=== PATIENT | male | born 1980 | race Caucasian/White ===

== ENCOUNTER 2018-07-21 11:07 | Emergency (ER) | payer BC, OTHER, SELFPAY ==
[2018-07-21 12:21] LABS: Absolute Lymphocytes (CBC) 3.6 K/uL (0.7-4.9); Absolute Monocytes 0.8 K/uL (0.1-1.3); Absolute Neutrophil 5.4 K/uL (1.8-8.0); Basophils % 0.6 % (0-1.3); Eosinophils % 3.3 % (0-4.4); Hematocrit 45.7 % (39.6-49.0); MPV 9.3 fL (7.6-11.3); RBC Red Blood Cell Count 5.22 M/uL (4.33-5.43)
--- NOTE | 2018-07-21 12:28 | RAD REPORT ---
EXAM DESCRIPTION: CT - Head Brain Wo Cont - 07/21/2018 12:21 pm CLINICAL HISTORY: DIZZINESS Headache, drowsiness COMPARISON: No comparisons TECHNIQUE: All CT scans are performed using dose optimization technique as appropriate and may inclu de automated exposure control or mA/KV adjustment according to patient size. FINDINGS: No intracranial hemorrhage, hydrocephalus or extra-axial fluid collection.No areas of brai n edema or evidence of midline shift. The paranasal sinuses and mastoids are clear. The calvarium is intact. IMPRESSION: No acute intracranial abnormality.
[2018-07-21 12:32] LABS: Protime INR 1.04
[2018-07-21 12:44] LABS: ALT/SGPT 39 U/L (12-78); AST/SGOT 20 U/L (15-37); Albumin 3.7 g/dL (3.4-5.0); Alkaline Phosphatase 93 U/L (45-117); BUN Blood Urea Nitrogen 14 mg/dL (7-18); Bicarbonate 27 mmol/L (21-32); Bilirubin Direct 0.1 mg/dL (0-0.2); Bilirubin Total 0.4 mg/dL (0.2-1.0); Glucose Level 94 mg/dL (74-106); Magnesium 2.1 mg/dL (1.8-2.4); NT PRO-BNP 205 pg/mL (<125); Potassium 3.7 mmol/L (3.5-5.1); Protein, Total 7.4 g/dL (6.4-8.2); Sodium Level 140 mmol/L (136-145); Troponin (Emerg Dept Use Only) < 0.02 ng/mL (0.0-0.045)
--- NOTE | 2018-07-21 12:57 | RAD REPORT ---
EXAM DESCRIPTION: RAD - Chest Single View - 07/21/2018 12:51 pm CLINICAL HISTORY: Hypertension, dizziness, shortness of breath COMPARISON: None. TECHNIQUE: AP portable chest image was obtained 1238 hours . FINDINGS: Lungs are clear. Heart size is upper normal to slightly enlarged. No vascular engorgement. No measurable pleural effusion and no pneumothorax. No acute bony abnormality seen. No acute aortic findings suspected. IMPRESSION: No acute cardiopulmonary process. Heart size is upper normal to slightly enlarged. No failure finding.
--- NOTE | 2018-07-21 14:55 | EDPHYS ---
Physician Documentation [facility] Name: Mumtaz Jean Baptiste Age: 38 yrs Sex: Male : 1980 Arrival Date: 07/21/2018 Time: 11:11 Bed 24 Private MD: ED Physician Niko Pratt HPI: 07/21 12:00 This 38 yrs old Male presents to ER via Ambulatory with complaints of High pm1 Blood Pressure. 12:00 The patient has elevated blood pressure and discovered this At work. Onset: The pm1 symptoms/episode began/occurred this morning. Modifying factors: The symptoms are aggravated by nothing. Associated signs and symptoms: Pertinent positives: dizziness, Pertinent negatives: chest pain, dyspnea, headache, nausea, vomiting, weakness. Severity of symptoms: in the emergency department the blood pressure is improved. The patient has not experienced similar symptoms in the past. The patient has not recently seen a physician. Patient was at work and felt dizziness and bilateral blurry vision. He went to his work's nursing office and they checked his pressure and told him that his pressure was elevated, between 180 to 200 systolic. Referred to ER. Historical: - Allergies: 11:25 No Known Allergies; aa5 - PMHx: 11:25 None; aa5 - PSHx: 11:25 None; aa5 - Immunization history:: Flu vaccine is not up to date. - Social history:: Smoking status: Patient/guardian denies using tobacco. - Ebola Screening: : No symptoms or risks identified at this time. ROS: 12:00 Constitutional: Negative for fever, chills, and weight loss, Eyes: Negative for injury, pm1 pain, redness, and discharge, ENT: Negative for injury, pain, and discharge, Neck: Negative for injury, pain, and swelling, Cardiovascular: Negative for chest pain, palpitations, and edema, Respiratory: Negative for shortness of breath, cough, wheezing, and pleuritic chest pain, Abdomen/GI: Negative for abdominal pain, nausea, vomiting, diarrhea, and constipation, Back: Negative for injury and pain, : Negative for injury, bleeding, discharge, and swelling, MS/Extremity: Negative for injury and deformity, Skin: Negative for injury, rash, and discoloration. 12:00 Neuro: Positive for dizziness, Negative for altered mental status, gait disturbance, headache, numbness, tingling, weakness. Exam: 12:00 Constitutional: This is a well developed, well nourished patient who is awake, alert, pm1 and in no acute distress. Head/Face: Normocephalic, atraumatic. Eyes: Pupils equal round and reactive to light, extra-ocular motions intact. Lids and lashes normal. Conjunctiva and sclera are non-icteric and not injected. Cornea within normal limits. Periorbital areas with no swelling, redness, or edema. ENT: Nares patent. No nasal discharge, no septal abnormalities noted. Tympanic membranes are normal and external auditory canals are clear. Oropharynx with no redness, swelling, or masses, exudates, or evidence of obstruction, uvula midline. Mucous membranes moist. Neck: Trachea midline, no thyromegaly or masses palpated, and no cervical lymphadenopathy. Supple, full range of motion without nuchal rigidity, or vertebral point tenderness. No Meningismus. Chest/axilla: Normal chest wall appearance and motion. Nontender with no deformity. No lesions are appreciated. Cardiovascular: Regular rate and rhythm with a normal S1 and S2. No gallops, murmurs, or rubs. Normal PMI, no JVD. No pulse deficits. Respiratory: Lungs have equal breath sounds bilaterally, clear to auscultation and percussion. No rales, rhonchi or wheezes noted. No increased work of breathing, no retractions or nasal flaring. Abdomen/GI: Soft, non-tender, with normal bowel sounds. No distension or tympany. No guarding or rebound. No evidence of tenderness throughout. Back: No spinal tenderness. No costovertebral tenderness. Full range of motion. Skin: Warm, dry with normal turgor. Normal color with no rashes, no lesions, and no evidence of cellulitis. MS/ Extremity: Pulses equal, no cyanosis. Neurovascular intact. Full, normal range of motion. 12:00 Neuro: Orientation: is normal, Mentation: is normal, Cranial nerves: CN II- XII are normal as tested, Cerebellar function: normal finger to nose testing, heel to landry testing is normal, Motor: moves all fours, strength is normal, strength is 5/5 in all extremities, Sensation: is normal, no obvious gross deficits, Gait: is steady, at a normal pace, without difficulty, Abnormal movements: there are no abnormal movements. 12:00 Psych: Behavior/mood is cooperative, anxious, Oriented to person, place, time. Vital Signs: 11:25 BP 134 / 88; Pulse 88; Resp 18 S; Temp 97.6(TE); Pulse Ox 97% on R/A; Weight 163.29 kg aa5 (R); Height 6 ft. 2 in. (187.96 cm) (R); Pain 0/10; 14:32 BP 162 / 97; Pulse 82; Resp 18; Temp 98.4(O); Pulse Ox 99% on R/A; Pain 0/10; ls4 11:25 Body Mass Index 46.22 (163.29 kg, 187.96 cm) aa5 MDM: 11:29 Patient medically screened. pm1 14:54 Data reviewed: vital signs. Data interpreted: Pulse oximetry: on room air is 99 %. pm1 Interpretation: normal. Counseling: I had a detailed discussion with the patient and/or guardian regarding: the historical points, exam findings, and any diagnostic results supporting the discharge/admit diagnosis, lab results, radiology results, the need for outpatient follow up, to return to the emergency department if symptoms worsen or persist or if there are any questions or concerns that arise at home. 07/21 11:54 Order name: Basic Metabolic Panel; Complete Time: 12:56 pm07/21 11:54 Order name: CBC with Diff; Complete Time: 12:56 pm07/21 11:54 Order name: LFT's; Complete Time: 12:56 pm07/21 11:54 Order name: Magnesium; Complete Time: 12:56 pm07/21 11:54 Order name: NT PRO-BNP; Complete Time: 12:56 pm07/21 11:54 Order name: PT-INR; Complete Time: 12:56 pm07/21 11:54 Order name: Troponin (emerg Dept Use Only); Complete Time: 12:56 pm07/21 11:54 Order name: XRAY Chest (1 view); Complete Time: 13:07 pm07/21 11:54 Order name: EKG; Complete Time: 11:55 pm07/21 11:54 Order name: Cardiac monitoring; Complete Time: 12:20 pm07/21 11:54 Order name: EKG - Nurse/Tech; Complete Time: 12:20 pm1 07/21 11:54 Order name: IV Saline Lock; Complete Time: 12:20 pm1 07/21 11:54 Order name: Labs collected and sent; Complete Time: 12:20 pm1 07/21 11:54 Order name: CT Head Brain wo Cont; Complete Time: 12:56 pm1 07/21 11:54 Order name: O2 Per Protocol; Complete Time: 12:20 pm1 07/21 11:54 Order name: O2 Sat Monitoring; Complete Time: 12:20 pm1 Administered Medications: No medications were administered Disposition: 07/21/18 14:54 Discharged to Home. Impression: Essential (primary) hypertension. - Condition is Stable. - Discharge Instructions: Hypertension, How to Take Your Blood Pressure, [id number], Exercising to Lose Weight, DASH Eating Plan, Managing Your Hypertension. - Medication Reconciliation Form, Thank You Letter form. - Follow up: Emergency Department; When: As needed; Reason: Worsening of condition. Follow up: Private Physician; When: 2 - 3 days; Reason: Recheck today's complaints, Continuance of care, Re-evaluation by your physician. - Problem is new. - Symptoms have improved. Signatures: Dispatcher [employer] EDMS Bertha Rod RN RN aa5 Iam Marin NP MANAGER PERIOPERATIVE pm1 Wendy Begum RN RN ls4 Corrections: (The following items were deleted from the chart) 15:03 14:54 07/21/2018 14:54 Discharged to Home. Impression: Essential (primary) ls4 hypertension. Condition is Stable. Forms are Medication Reconciliation Form, Thank You Letter, Antibiotic Education, Prescription Opioid Use. Follow up: Emergency Department; When: As needed; Reason: Worsening of condition. Follow up: Private Physician; When: 2 - 3 days; Reason: Recheck today's complaints, Continuance of care, Re-evaluation by your physician. Problem is new. Symptoms have improved. pm1
--- NOTE | 2018-07-21 14:55 | ER ---
Nurse's Notes [facility] Name: Mumtaz Jean Baptiste Age: 38 yrs Sex: Male : 1980 Arrival Date: 07/21/2018 Time: 11:11 Bed 24 Private MD: Diagnosis: Essential (primary) hypertension Presentation: 07/21 11:23 Presenting complaint: Patient states: "I was just sitting at my desk at work and I aa5 started feeling lightheaded and my vision was blurry and I went to the nurse's office and they said my blood pressure was about 220 (systolic)". Transition of care: patient was not received from another setting of care. Onset of symptoms was June 2018. Risk Assessment: Do you want to hurt yourself or someone else? Patient reports no desire to harm self or others. Initial Sepsis Screen: Does the patient meet any 2 criteria? No. Patient's initial sepsis screen is negative. Does the patient have a suspected source of infection? No. Patient's initial sepsis screen is negative. Care prior to arrival: None. 11:23 Method Of Arrival: Ambulatory aa5 11:23 Acuity: MARILUZ 3 aa5 Triage Assessment: 12:20 General: Appears in no apparent distress. Behavior is calm, cooperative. Pain: Denies ls4 pain. Neuro: No deficits noted. Cardiovascular: Denies chest pain, diaphoresis, fatigue, lightheadedness, nausea, palpitations, shortness of breath, syncope, vomiting, Capillary refill < 3 seconds Patient's skin is warm and dry. Respiratory: Airway is patent Respiratory effort is even, unlabored, Respiratory pattern is regular. GI: No deficits noted. : No deficits noted. Derm: Skin is pink, warm \\T\\ dry. Musculoskeletal: No deficits noted. Historical: - Allergies: 11:25 No Known Allergies; aa5 - PMHx: 11:25 None; aa5 - PSHx: 11:25 None; aa5 - Immunization history:: Flu vaccine is not up to date. - Social history:: Smoking status: Patient/guardian denies using tobacco. - Ebola Screening: : No symptoms or risks identified at this time. Screenin:29 Abuse screen: Denies threats or abuse. Denies injuries from another. Nutritional ls4 screening: No deficits noted. Tuberculosis screening: No symptoms or risk factors identified. Fall Risk None identified. Assessment: 12:29 General: SEE TRIAGE. ls4 12:51 Reassessment: Patient appears in no apparent distress at this time. Patient and/or ls4 family updated on plan of care and expected duration. Pain level reassessed. Patient is alert, oriented x 3, equal unlabored respirations, skin warm/dry/pink. Vital Signs: 11:25 BP 134 / 88; Pulse 88; Resp 18 S; Temp 97.6(TE); Pulse Ox 97% on R/A; Weight 163.29 kg aa5 (R); Height 6 ft. 2 in. (187.96 cm) (R); Pain 0/10; 14:32 BP 162 / 97; Pulse 82; Resp 18; Temp 98.4(O); Pulse Ox 99% on R/A; Pain 0/10; ls4 11:25 Body Mass Index 46.22 (163.29 kg, 187.96 cm) aa5 ED Course: 11:11 Patient arrived in ED. mr 11:23 Arm band placed on. aa5 11:25 Triage completed. aa5 11:29 Iam Marin, RN PERINATAL is PHCP. pm1 11:29 Niko Pratt MD is Attending Physician. pm1 12:02 Wendy Begum RN is Primary Nurse. ls4 12:10 Patient has correct armband on for positive identification. Fall risk band placed. Bed ls4 in low position. Side rails up X 1. surveillance monitor on. Pulse ox on. NIBP on. 12:10 No provider procedures requiring assistance completed. Initial lab(s) drawn, by nh, ls4 sent to lab. EKG done, by electrical engineering technologist. Inserted saline lock: 20 gauge in right antecubital area, using aseptic technique. Blood collected. 12:10 Patient maintains SpO2 saturation greater than 95% on room air. ls4 12:21 CT Head Brain wo Cont In Process Unspecified. EDMS 12:31 EKG done, by electrical engineering technologist. reviewed by Iam Marin NP. dt2 12:50 X-ray completed. Portable x-ray completed in exam room. Patient tolerated procedure sw well. 12:51 XRAY Chest (1 view) In Process Unspecified. EDMS 14:44 IV discontinued, intact, bleeding controlled, No redness/swelling at site. Pressure ls4 dressing applied. Administered Medications: No medications were administered Outcome: 14:54 Discharge ordered by MD. pm1 15:02 Discharged to home ambulatory, with family. ls4 15:02 Condition: good 15:02 Discharge instructions given to patient, family, Instructed on discharge instructions, follow up and referral plans. medication usage, Demonstrated understanding of instructions, follow-up care, medications, Prescriptions given X 15:03 Patient left the ED. ls4 Signatures: Dispatcher [employer] EDMS Syeda Cameron Audri, RN RN aa5 Hilaria Goldman Patrick, CLARITA RN PERINATAL pm1 Amada Soares dt2 Wendy Begum, RN RN ls4
--- NOTE | 2018-07-21 18:38 | EKG ---
Test Date: 2018-07-21 Test Time: 12:20:27 Show Host Or Hostess: VLADISLAV MEASUREMENT RESULTS: Intervals: Rate: 84 WV: 168 QRSD: 132 QT: 372 QTc: 439 Snover: P: 36 WV: 168 QRS: 119 T: 30 INTERPRETIVE STATEMENTS: Normal sinus rhythm Right axis deviation Incomplete right bundle branch block Abnormal ECG No previous ECG available for comparison Electronically Signed On 07-21-18 18:37:22 COMMAND CENTER ANALYST by Lionel Manuel
== END 2018-07-21 15:03 | disposition home or self-care (01) ==
LOC: ER 11:07
DX: I10 Essential (primary) hypertension (principal)
CPT/HCPCS: 36415; 70450; 71045; 80048; 80076; 83735; 83880; 84484; 85025; 85610; 93005; 99285

== ENCOUNTER 2019-03-30 11:06 | Observation (INO) | payer BC ==
[2019-03-30] MEDS ORDERED: NA CHLORIDE 0.9% 1,000 ML ONE (12:01)
--- NOTE | 2019-03-30 12:20 | RAD REPORT ---
EXAM DESCRIPTION: RAD - Chest Single View - 03/30/2019 12:12 pm CLINICAL HISTORY: COUGH Chest pain. COMPARISON: Chest Single View dated 07/21/2018 FINDINGS: Portable technique limits examination quality. The lungs are grossly clear. The heart is mildly enlarged in size. No displaced fractures.Cervical torres rdware plate.
[2019-03-30 12:21] LABS: Absolute Lymphocytes (CBC) 3.3 K/uL (0.7-4.9); Basophils % 0.6 % (0-1.3); Hematocrit 43.7 % (39.6-49.0); Lymphocytes % 35.6 % (15.3-44.8); MPV 10.2 fL (7.6-11.3); RBC Red Blood Cell Count 5.09 M/uL (4.33-5.43)
[2019-03-30 12:25] LABS: Protime INR 1.13
[2019-03-30 12:43] LABS: ALT/SGPT 44 U/L (12-78); AST/SGOT 22 U/L (15-37); Alkaline Phosphatase 82 U/L (45-117); BUN Blood Urea Nitrogen 33 mg/dL (7-18); Bicarbonate 23 mmol/L (21-32); Bilirubin Direct 0.2 mg/dL (0-0.2); Bilirubin Total 0.8 mg/dL (0.2-1.0); Glucose Level 83 mg/dL (74-106); Lipase 141 U/L (73-393); Magnesium 2.2 mg/dL (1.8-2.4); NT PRO-BNP 241 pg/mL (<125); Potassium 4.3 mmol/L (3.5-5.1); Protein, Total 7.5 g/dL (6.4-8.2); Sodium Level 138 mmol/L (136-145); Troponin (Emerg Dept Use Only) < 0.02 ng/mL (0.0-0.045)
--- NOTE | 2019-03-30 13:24 | ER ---
Nurse's Notes [facility] Name: Mumtaz Jean Baptiste Age: 38 yrs Sex: Male : 1980 Arrival Date: 03/30/2019 Time: 11:11 Bed 8 Private MD: Bossman Ayon Diagnosis: Dyspnea;Unspecified combined systolic (congestive) and diastolic (congestive) heart failure;Unspecified kidney failure;Obesity, unspecified Presentation: 03/30 11:35 Presenting complaint: Patient states: Pt reports he was seen at [facility] and ss transferred to [facility] a week ago and told that he had fluid on his lungs. Patient states that he has not been feeling well over the weekend, but thought his body was just adjusting to his new medications. Patient was seen by his PCP this morning who told him to come to the ER because perhaps the pharmacy has given him too much medication. Transition of care: patient was not received from another setting of care. Onset of symptoms was March 30, 2019. Risk Assessment: Do you want to hurt yourself or someone else? Patient reports no desire to harm self or others. Initial Sepsis Screen: Does the patient meet any 2 criteria? No. Patient's initial sepsis screen is negative. Does the patient have a suspected source of infection? No. Patient's initial sepsis screen is negative. Care prior to arrival: None. 11:35 Acuity: MARILUZ 3 ss 11:35 Method Of Arrival: Ambulatory ss Historical: - Allergies: 11:40 No Known Allergies; ss - Home Meds: 11:40 aspirin 81 mg Oral TbEC 1 tab once daily [Active]; carvedilol 6.25 mg oral tab 1 tab ss every 12 hours [Active]; furosemide 80 mg Oral tab 1 tab once daily [Active]; losartan 100 mg oral tab 1 tab once daily [Active]; spironolactone 25 mg Oral tab 1 tab once daily [Active]; atorvastatin 20 mg oral tab 1 tab once daily [Active]; - PMHx: 11:40 CHF; ss - PSHx: 11:40 None; ss - Immunization history:: Adult Immunizations up to date. - Social history:: Smoking status: Patient/guardian denies using tobacco. - Ebola Screening: : Patient denies exposure to infectious person Patient denies travel to an Ebola-affected area in the 21 days before illness onset. - Family history:: not pertinent. Screenin:30 Abuse screen: Denies threats or abuse. Denies injuries from another. Nutritional hb screening: No deficits noted. Tuberculosis screening: No symptoms or risk factors identified. Fall Risk None identified. Assessment: 11:59 Reassessment: pt request to remain standing due to nausea when sitting down and sg worsening symptoms when lying in bed, pt IV completed and remains on monitors while standing at this time. 12:45 Reassessment: Patient appears in no apparent distress at this time. Patient and/or hb family updated on plan of care and expected duration. Pain level reassessed. Patient is alert, oriented x 3, equal unlabored respirations, skin warm/dry/pink. 13:41 Reassessment: Patient appears in no apparent distress at this time. No changes from hb previously documented assessment. Patient and/or family updated on plan of care and expected duration. Pain level reassessed. Patient is alert, oriented x 3, equal unlabored respirations, skin warm/dry/pink. Vital Signs: 11:40 BP 108 / 71; Pulse 75; Resp 17; Temp 98.2(O); Pulse Ox 99% on R/A; Weight 167.83 kg; ss Height 6 ft. 2 in. (187.96 cm); Pain 8/10; 13:30 BP 110 / 77; Pulse 72; Resp 17; Temp 98.2; Pulse Ox 100% on R/A; sg 14:35 BP 115 / 72; Pulse 60 MON; Resp 17; Pulse Ox 96% on R/A; Pain 2/10; sg 11:40 Body Mass Index 47.50 (167.83 kg, 187.96 cm) ED Course: 11:11 Patient arrived in ED. mr 11:11 Bossman Ayon MD is Private Physician. mr 11:38 Triage completed. ss 11:40 Arm band placed on left wrist. 11:44 Niko Pratt MD is Attending Physician. [facility] 11:48 Quoc Waller, CHASTITY is Primary Nurse. sg 11:59 Initial lab(s) drawn, by sd, sent to lab. Inserted saline lock: 20 gauge in left hand, sg using aseptic technique. Blood collected. 12:13 XRAY Chest (1 view) In Process Unspecified. EDMS 12:22 EKG done, by collection systems technician. reviewed by Niko Pratt MD. at1 12:30 Patient has correct armband on for positive identification. Bed in low position. Call hb light in reach. Side rails up X 1. 13:22 Christy Whitehead MD is Hospitalizing Provider. sadi Administered Medications: 13:08 Not Given (Duplicate Order): NS 0.9% 1000 ml IV at 1 bolus Per protocol; 1000 mL bolus asdi Outcome: 13:23 Decision to Hospitalize by Provider. sadi 15:31 Patient left the ED. sg Signatures: Dispatcher [employer] EDMS Quoc Waller, RN RN sg Niko Pratt MD MD cha Rivera, Mary mr Ivory Lee, RN RN Almaz Mckay, fish net stringer EKG Tat1 Lesly Jones, RN RN hb
--- NOTE | 2019-03-30 13:25 | EDPHYS ---
Physician Documentation [facility] Name: Mumtaz Jean Baptiste Age: 38 yrs Sex: Male : 1980 Arrival Date: 03/30/2019 Time: 11:11 Bed 8 Private MD: Bossman Ayon ED Physician Niko Pratt HPI: 03/30 13:19 This 38 yrs old Male presents to ER via Ambulatory with complaints of Doesn't sadi Feel Right. 13:19 The patient has shortness of breath at rest, with light activity. Onset: The sadi symptoms/episode began/occurred 2 day(s) ago. Duration: The symptoms are continuous, and are steadily getting worse. The patient's shortness of breath has no apparent modifying factors. hx chf. Associated signs and symptoms: The patient has no apparent associated signs or symptoms. Severity of symptoms: At their worst the symptoms were mild moderate in the emergency department the symptoms are unchanged. The patient has experienced similar episodes in the past, several times. Historical: - Allergies: 11:40 No Known Allergies; ss - Home Meds: 11:40 aspirin 81 mg Oral TbEC 1 tab once daily [Active]; carvedilol 6.25 mg oral tab 1 tab ss every 12 hours [Active]; furosemide 80 mg Oral tab 1 tab once daily [Active]; losartan 100 mg oral tab 1 tab once daily [Active]; spironolactone 25 mg Oral tab 1 tab once daily [Active]; atorvastatin 20 mg oral tab 1 tab once daily [Active]; - PMHx: 11:40 CHF; ss - PSHx: 11:40 None; ss - Immunization history:: Adult Immunizations up to date. - Social history:: Smoking status: Patient/guardian denies using tobacco. - Ebola Screening: : Patient denies exposure to infectious person Patient denies travel to an Ebola-affected area in the 21 days before illness onset. - Family history:: not pertinent. ROS: 13:19 Constitutional: Negative for fever, chills, and weight loss, Eyes: Negative for injury, sadi pain, redness, and discharge, ENT: Negative for injury, pain, and discharge, Neck: Negative for injury, pain, and swelling, Cardiovascular: Negative for chest pain, palpitations, and edema, Respiratory: Negative for shortness of breath, cough, wheezing, and pleuritic chest pain, Abdomen/GI: Negative for abdominal pain, nausea, vomiting, diarrhea, and constipation, Back: Negative for injury and pain, : Negative for injury, bleeding, discharge, and swelling, MS/Extremity: Negative for injury and deformity, Skin: Negative for injury, rash, and discoloration, Neuro: Negative for headache, weakness, numbness, tingling, and seizure, Psych: Negative for depression, anxiety, suicide ideation, homicidal ideation, and hallucinations, Allergy/Immunology: Negative for hives, rash, and allergies, Endocrine: Negative for neck swelling, polydipsia, polyuria, polyphagia, and marked weight changes, Hematologic/Lymphatic: Negative for swollen nodes, abnormal bleeding, and unusual bruising. Exam: 13:19 Constitutional: This is a well developed, well nourished patient who is awake, alert, sadi and in no acute distress. Head/Face: Normocephalic, atraumatic. Eyes: Pupils equal round and reactive to light, extra-ocular motions intact. Lids and lashes normal. Conjunctiva and sclera are non-icteric and not injected. Cornea within normal limits. Periorbital areas with no swelling, redness, or edema. ENT: Nares patent. No nasal discharge, no septal abnormalities noted. Tympanic membranes are normal and external auditory canals are clear. Oropharynx with no redness, swelling, or masses, exudates, or evidence of obstruction, uvula midline. Mucous membranes moist. Neck: Trachea midline, no thyromegaly or masses palpated, and no cervical lymphadenopathy. Supple, full range of motion without nuchal rigidity, or vertebral point tenderness. No Meningismus. Chest/axilla: Normal chest wall appearance and motion. Nontender with no deformity. No lesions are appreciated. Cardiovascular: Regular rate and rhythm with a normal S1 and S2. No gallops, murmurs, or rubs. Normal PMI, no JVD. No pulse deficits. Respiratory: Lungs have equal breath sounds bilaterally, clear to auscultation and percussion. No rales, rhonchi or wheezes noted. No increased work of breathing, no retractions or nasal flaring. Abdomen/GI: Soft, non-tender, with normal bowel sounds. No distension or tympany. No guarding or rebound. No evidence of tenderness throughout. Back: No spinal tenderness. No costovertebral tenderness. Full range of motion. Male : Normal genitalia with no discharge or lesions. Skin: Warm, dry with normal turgor. Normal color with no rashes, no lesions, and no evidence of cellulitis. MS/ Extremity: Pulses equal, no cyanosis. Neurovascular intact. Full, normal range of motion. Neuro: Awake and alert, GCS 15, oriented to person, place, time, and situation. Cranial nerves II-XII grossly intact. Motor strength 5/5 in all extremities. Sensory grossly intact. Cerebellar exam normal. Normal gait. Psych: Awake, alert, with orientation to person, place and time. Behavior, mood, and affect are within normal limits. Vital Signs: 11:40 BP 108 / 71; Pulse 75; Resp 17; Temp 98.2(O); Pulse Ox 99% on R/A; Weight 167.83 kg; ss Height 6 ft. 2 in. (187.96 cm); Pain 8/10; 13:30 BP 110 / 77; Pulse 72; Resp 17; Temp 98.2; Pulse Ox 100% on R/A; sg 14:35 BP 115 / 72; Pulse 60 MON; Resp 17; Pulse Ox 96% on R/A; Pain 2/10; sg 11:40 Body Mass Index 47.50 (167.83 kg, 187.96 cm) MDM: 11:44 Patient medically screened. [facility] 13:21 Data reviewed: vital signs, nurses notes, lab test result(s), EKG, radiologic studies, sadi doppler, plain films. 03/30 11:45 Order name: Basic Metabolic Panel; Complete Time: 13: [facility] 03/30 11:45 Order name: CBC with Diff; Complete Time: 13: [facility] 03/30 11:45 Order name: LFT's; Complete Time: 13: [facility] 03/30 11:45 Order name: Magnesium; Complete Time: 13: [facility] 03/30 11:45 Order name: NT PRO-BNP; Complete Time: 13: [facility] 03/30 11:45 Order name: PT-INR; Complete Time: 13: [facility] 03/30 11:45 Order name: Troponin (emerg Dept Use Only); Complete Time: 13: [facility] 03/30 11:45 Order name: XRAY Chest (1 view); Complete Time: 13: [facility] 03/30 11:45 Order name: EKG; Complete Time: 11:47 [facility] 03/30 11:45 Order name: Cardiac monitoring; Complete Time: 12:49 [facility] 03/30 11:45 Order name: Lipase; Complete Time: 13:09 [facility] 03/30 11:45 Order name: Urine Culture [facility] 03/30 12:39 Order name: Echo w/ Doppler [facility] 03/30 11:45 Order name: EKG - Nurse/Tech; Complete Time: 12:49 [facility] 03/30 11:45 Order name: IV Saline Lock; Complete Time: 12:49 [facility] 03/30 11:45 Order name: Labs collected and sent; Complete Time: 12:49 [facility] 03/30 11:45 Order name: O2 Per Protocol; Complete Time: 12:49 [facility] 03/30 11:45 Order name: O2 Sat Monitoring; Complete Time: 12:49 [facility] Administered Medications: 13:08 Not Given (Duplicate Order): NS 0.9% 1000 ml IV at 1 bolus Per protocol; 1000 mL bolus [facility] Disposition: 03/30/19 13:23 Hospitalization ordered by Christy Whitehead for Inpatient Admission. Preliminary diagnosis are Dyspnea, Unspecified combined systolic (congestive) and diastolic (congestive) heart failure, Unspecified kidney failure, Obesity, unspecified. - Bed requested for Telemetry/MedSurg (Inpatient). - Status is Inpatient Admission. sg - Condition is Fair. - Problem is new. - Symptoms have improved. UTI on Admission? No Signatures: Dispatcher [employer] EDMS Reyna Lopes Quoc Asher RN RN sg Anderson, Corey, MD MD cha Smirch, Shelby RN RN ss Corrections: (The following items were deleted from the chart) 14:32 13:23 Hospitalization Ordered by Christy Whitehead MD for Inpatient Admission. Preliminary bd diagnosis is Dyspnea; Unspecified combined systolic (congestive) and diastolic (congestive) heart failure; Unspecified kidney failure; Obesity, unspecified. Bed requested for Telemetry/MedSurg (Inpatient). Status is Inpatient Admission. Condition is Fair. Problem is new. Symptoms have improved. UTI on Admission? No. sadi 15:31 14:32 03/30/2019 13:23 Hospitalization Ordered by Christy Whitehead MD for Inpatient sg Admission. Preliminary diagnosis is Dyspnea; Unspecified combined systolic (congestive) and diastolic (congestive) heart failure; Unspecified kidney failure; Obesity, unspecified. Bed requested for Telemetry/MedSurg (Inpatient). Status is Inpatient Admission. Condition is Fair. Problem is new. Symptoms have improved. UTI on Admission? No. bd
--- NOTE | 2019-03-30 14:01 | ECHO ---
HEIGHT: 6 ft 2 in WEIGHT: 370 lb oz DATE OF STUDY: 03/30/[address]: Niko Pratt MD 2-DIMENSIONAL: YES M.MODE: YES DOPPLER: YES COLOR FLOW: YES TDS: NO PORTABLE: YES DEFINITY: NO BUBBLE STUDY: NO DIAGNOSIS: SHORTNESS OF BREATH CARDIAC HISTORY: CATHERIZATION: NO SURGERY: NO PROSTHETIC VALVE: NO PACEMAKER: NO MEASUREMENTS (cm) DIASTOLIC (NORMALS) SYSTOLIC (NORMALS) IVSd 1.2 (0.6-1.2) LA Diam 4.6 (1.9-4.0) LVEF 22% LVIDd 7.3 (3.5-5.7) LVIDs 6.5 (2.0-3.5) %FS 10% LVPWd 1.2 (0.6-1.2) Ao Diam 3.0 (2.0-3.7) 2 DIMENSIONAL ASSESSMENT: RIGHT ATRIUM: DILATED LEFT ATRIUM: DILATED RIGHT VENTRICLE: DILATED LEFT VENTRICLE: DILATED TRICUSPID VALVE: NORMAL MITRAL VALVE: NORMAL PULMONIC VALVE: NORMAL AORTIC VALVE: NORMAL PERICARDIAL EFFUSION: NONE AORTIC ROOT: NORMAL LEFT VENTRICULAR WALL MOTION: SEVERE GLOBAL HYPOKINESIS. DOPPLER/COLOR FLOW: LOW CARDIAC INDEX. COMMENTS: FOUR CHAMBER DILATATION. BIVENTRICULAR CONGESTIVE HEART FAILURE. LOW CARDIAC INDEX. TECHNOLOGIST: Rowan BOLIVAR
--- NOTE | 2019-03-30 14:32 | EKG ---
Test Date: 2019-03-30 Test Time: 12:24:21 Tile Fitter: ARIS MEASUREMENT RESULTS: Intervals: Rate: 74 WA: 174 QRSD: 116 QT: 400 QTc: 444 [place]: P: 45 WA: 174 QRS: -30 T: 58 INTERPRETIVE STATEMENTS: Normal sinus rhythm Possible Left atrial enlargement Left axis deviation Nonspecific T wave abnormality Abnormal ECG Compared to ECG 07/21/2018 12:20:27 Left-axis deviation now present T-wave abnormality now present Right-axis deviation no longer present Incomplete right bundle-branch block no longer present Electronically Signed On 03-30-19 14:31:27 JOURNEYMAN PAINTER by Lionel Manuel
--- NOTE | 2019-03-30 15:45 | P.HP ---
Certification for Inpatient Patient admitted to: Observation With expected LOS: <2 Midnights Patient will require the following post-hospital care: None Practitioner: I am a practitioner with admitting privileges, knowledge of patient current condition, hospital course, and medical plan of care. Services: Services provided to patient in accordance with Admission requirements found in Title 42 Section 412.3 of the Code of Federal Regulations Patient History Date of Service: 03/30/19 Primary Care Provider: Dr Ayon Reason for admission: Dizziness History of Present Illness: This is a 38-year-old male with significant past medical history of congestive heart failure, obstructive sleep apnea, hyperlipidemia, who presented to the ED complaining of having lightheadedness and dizziness. Patient stated that for about the past couple of days he has been feeling generalized weakness and just not himself and thus he decided to go to his primary care doctor's office today. While at the primary care doctor's office he was evaluated by the PA who told him that he needs to come to the ER to get a further checked out as he might be getting too much of Lasix that might be causing his electrolytes to be abnormal. Patient stated that she he has been having episodes of lightheadedness along with dizziness for the past couple of days. He has also been having generalized weakness along with muscle spasms. Patient stated that 2 weeks ago he was seen at [facility] for shortness of breath and dyspnea was diagnosed with congestive heart failure and was sent to [place] for further evaluation and treatment. In [place] patient stated that he had a heart catheterization which was consistent with no coronary artery disease. Patient was evaluated for the defibrillator versus life vest and was given a life vest and discharged home to follow up with primary care doctor. Patient was given prescription of Coreg, spironolactone, Lasix, losartan, aspirin, Retrovir statin to take for his new diagnosis. Patient stated that he has not had a sleep study and thus has not been diagnosed with obstructive sleep apnea however was told at [facility] thus this was the reason most likely for his congestive heart failure. Patient stated that he initially before the diagnosis he was not able to lay flat now he is able to lay flat and has shortness of breath has improved however today he started having worsened his shortness of breath. Denies having any chest pain nausea vomiting abdominal pain or any other associated symptoms. Allergies No Known Allergies Allergy (Unverified 03/30/19 15:13) Home medications list reviewed: Yes - Past Medical/Surgical History Has patient received pneumonia vaccine in the past: No Diabetic: No -: Hypertension -: Hyperlipidemia -: Obstructive sleep apnea -: Congestive heart failure- dilated cardiomyopathy Past Surgical History: Reviewed- Non-Contributory - Family History Family History: Reviewed- Non-Contributory - Social History Smoking Status: Never smoker Counseled patient to stop smoking for: more than 10 minutes Smoking therapy provided: Yes Patient receptive to therapy: Yes Alcohol use: No CD- Drugs: No Caffeine use: No Place of Residence: Home Review of Systems 10-point ROS is otherwise unremarkable Physical Examination - Physical Exam General: Alert, In no apparent distress HEENT: Atraumatic, PERRLA, Mucous membr. moist/pink, EOMI, Sclerae nonicteric Neck: Supple, 2+ carotid pulse no bruit, No LAD, Without JVD or thyroid abnormality Respiratory: Clear to auscultation bilaterally, Normal air movement Cardiovascular: Regular rate/rhythm, Normal S1 S2 Gastrointestinal: Normal bowel sounds, No tenderness Musculoskeletal: No tenderness Integumentary: No rashes Neurological: Normal gait, Normal speech, Normal strength at 5/5 x4 extr, Normal tone, Normal affect Lymphatics: No axilla or inguinal lymphadenopathy - Studies Laboratory Data (last 24 hrs) 03/30/19 11:56: PT 13.3 H, INR 1.13 03/30/19 11:56: WBC 9.4, Hgb 15.2, Hct 43.7, Plt Count 216 03/30/19 11:56: Sodium 138, Potassium 4.3, BUN 33 H, Creatinine 2.05 H, Glucose 83, Magnesium 2.2, Total Bilirubin 0.8, AST 22, ALT 44, Alkaline Phosphatase 82 , Lipase 141 Assessment and Plan - Problems (Diagnosis) (1) Dizziness Current Visit: Yes Status: Acute Plan: Dizziness and generalized weakness most likely secondary to congestive heart failure -echocardiogram consistent with the ejection fraction of 22% with global cardiomyopathy -dizziness and generalized weakness has resolved since patient was seen in the ER --will monitor patient here closely (2) Congestive heart failure (CHF) Current Visit: Yes Status: Acute Plan: Congestive heart failure most likely due to dilated cardiomyopathy -EF of 22% with dilated for chambers -currently on Lasix, spironolactone, Coreg, losartan -the continued here in the hospital and adjust the dosage -cardiology consulted. Awaiting recommendations at this time Qualifiers: Heart failure type: biventricular Qualified Code(s): I50.82 - Biventricular heart failure (3) Hyperlipidemia Current Visit: Yes Status: Chronic Plan: Hyper lipidemia -restart home medication at this time Qualifiers: Hyperlipidemia type: mixed hyperlipidemia Qualified Code(s): E78.2 - Mixed hyperlipidemia (4) Hypertension Current Visit: Yes Status: Chronic Plan: Will restart home medication at this time Qualifiers: Hypertension type: essential hypertension Qualified Code(s): I10 - Essential (primary) hypertension (5) Obstructive sleep apnea Current Visit: Yes Status: Acute Plan: Patient with undiagnosed obstructive sleep apnea -will get CPAP at night time here in the hospital Discharge Plan: Home Plan to discharge in: 48 Hours - Advance Directives Does patient have a Living Will: No Does patient have a Durable POA for Healthcare: No - Code Status/Comfort Care Code Status Assessed: Yes Critical Care: No
[2019-03-30 15:49] VITALS: BMI 47.5
[2019-03-30] MEDS ORDERED: INFLUENZA VACCINE (for 3y+) 0.5 ML DOSE IMVAC ONE (19:00)
[2019-03-30] MEDS: carvediloL 6.25 MG TAB PO SCH (20:43)
[2019-03-30] MEDS ORDERED: ATORVASTATIN 20 MG TAB PO SCH (21:00)
--- NOTE | 2019-03-30 21:03 | CON ---
History Of Present Illness: Mr. Jean Baptiste came to the hospital with lightheadedness, dizziness, visual antonio rring, and was found to be hypotensive. He has a cardiomyopathy diagnosed very recently. He tells u s last week he had a heart catheterization at [facility] in [place], was told his coronary arteries were normal. He had a cardiomyopathy with congestive heart failure and he was started on a variety of med ications aspirin, spironolactone, losartan, furosemide 80, carvedilol 6.25 b.i.d., and atorvastatin. The patient does not use tobacco at all. Alcohol use is minimal twice a month at the most. He has agreed not use any. No illegal drugs. His diagnosis of cardiomyopathy is just a week old. Past med ical history, past surgical history unremarkable. Physical Examination: Vital Signs: He is 6 feet 2 inches, 370 pounds. General: Very obese, alert, oriented, pleasant, not in distress. Lungs: Clear. Heart: Reveals a laterally displaced apical impulse. I do not appreciate a murmur. There seems to be a summation gallop. Extremities: Mild edema. Distal pulses palpable. Laboratory Data: His electrocardiogram shows sinus rhythm, heart rate 74, left atrial abnormality, n onspecific T-wave abnormality. His echocardiogram shows ejection fraction 22%. Four chambers are di lated. Has evidence of a low cardiac index. No MR or TR. No mitral regurgitation or tricuspid regu rgitation or aortic stenosis was seen. Impression: Mr. Jean Baptiste probably was over diurese. I think we could probably reduce his dose of Lasix t o 40, not give any for a few days and instruct him to use it only if he sees his weight go up a littl e bit. Teaching about daily weights, teaching about the symptoms of heart failure. For example, mateo e it if there is orthopnea, take it if there is weight gain and maybe on that lower dose he would be less symptomatic. He has a LifeVest already. He apparently does not wear it all the time. I instructed him that he should wear it all the time, but a much lower dose of Lasi x is indicated. CHANTAL/TRACE Voice ID: [id number] Report ID: [id number]
[2019-03-30 22:22] LABS: Barbiturates NEGATIVE (NEGATIVE); Benzodiazepines NEGATIVE (NEGATIVE); Cocaine NEGATIVE (NEGATIVE); METHAMPHETAM NEGATIVE (NEGATIVE); Methadone NEGATIVE (NEGATIVE); Opiates NEGATIVE (NEGATIVE); Phencyclidine NEGATIVE (NEGATIVE); THC Cannibis NEGATIVE (NEGATIVE)
[2019-03-30 22:36] LABS: Urine Appearance CLEAR; Urine Bilirubin NEGATIVE (NEG); Urine Blood NEGATIVE (NEG); Urine Color YELLOW; Urine Glucose NEGATIVE (NEG); Urine Protein NEGATIVE (NEG); Urine Urobilinogen 0.2 mg/dL (0.2-1.0); Urine pH 5.5 (5.0-7.0)
[2019-03-30 22:40] LABS: Urine Microscopic Reflex NO UMIC
[2019-03-31 05:53] LABS: Absolute Lymphocytes (CBC) 2.7 K/uL (0.7-4.9); Basophils % 0.3 % (0-1.3); Hematocrit 42.1 % (39.6-49.0); Lymphocytes % 34.5 % (15.3-44.8); RBC Red Blood Cell Count 4.87 M/uL (4.33-5.43)
[2019-03-31 06:02] LABS: Albumin 3.6 g/dL (3.4-5.0); Bilirubin Total 0.8 mg/dL (0.2-1.0); Phosphorus 3.4 mg/dL (2.5-4.9); Potassium 4.1 mmol/L (3.5-5.1); Protein, Total 7.1 g/dL (6.4-8.2)
[2019-03-31 08:20] VITALS: BP 129/76; TEMP 97.3
[2019-03-31] MEDS ORDERED: ASPIRIN 81 MG CHEWABLE TABLET PO SCH (09:00)
[2019-03-31] MEDS ORDERED: SPIRONOLACTONE 25 MG TABLET PO SCH (09:00)
[2019-03-31] MEDS ORDERED: LOSARTAN POTASSIUM 50 MG TABLET PO SCH (09:00)
[2019-03-31] MEDS: carvediloL 6.25 MG TAB PO SCH (09:04)
[2019-03-31 09:15] VITALS: O2SAT 99
--- NOTE | 2019-03-31 11:45 | P.SSS ---
Patient History Date of Service: 03/31/19 Primary Care Provider: Dr Ayon Reason for admission: Dizziness History of Present Illness: This is a 38-year-old male with significant past medical history of congestive heart failure, obstructive sleep apnea, hyperlipidemia, who presented to the ED complaining of having lightheadedness and dizziness. Patient stated that for about the past couple of days he has been feeling generalized weakness and just not himself and thus he decided to go to his primary care doctor's office today. While at the primary care doctor's office he was evaluated by the PA who told him that he needs to come to the ER to get a further checked out as he might be getting too much of Lasix that might be causing his electrolytes to be abnormal. Patient stated that she he has been having episodes of lightheadedness along with dizziness for the past couple of days. He has also been having generalized weakness along with muscle spasms. Patient stated that 2 weeks ago he was seen at [facility] for shortness of breath and dyspnea was diagnosed with congestive heart failure and was sent to [place] for further evaluation and treatment. In [place] patient stated that he had a heart catheterization which was consistent with no coronary artery disease. Patient was evaluated for the defibrillator versus life vest and was given a life vest and discharged home to follow up with primary care doctor. Patient was given prescription of Coreg, spironolactone, Lasix, losartan, aspirin, Retrovir statin to take for his new diagnosis. Patient stated that he has not had a sleep study and thus has not been diagnosed with obstructive sleep apnea however was told at [facility] thus this was the reason most likely for his congestive heart failure. Patient stated that he initially before the diagnosis he was not able to lay flat now he is able to lay flat and has shortness of breath has improved however today he started having worsened his shortness of breath. Denies having any chest pain nausea vomiting abdominal pain or any other associated symptoms. Allergies No Known Allergies Allergy (Unverified 03/30/19 15:13) Home Medications: Aspirin Chewable [Aspirin Chewable*] 81 mg PO DAILY 03/30/19 Atorvastatin Calcium 20 mg PO BEDTIME 03/30/19 Carvedilol 6.25 mg PO BID 03/30/19 Losartan Potassium 100 mg PO DAILY 03/30/19 Spironolactone 25 mg PO DAILY 03/30/19 Furosemide [Lasix] 20 mg PO BIDL #60 tab 03/31/19 - Past Medical/Surgical History Has patient received pneumonia vaccine in the past: No Diabetic: No -: Hypertension -: Hyperlipidemia -: Obstructive sleep apnea -: Congestive heart failure- dilated cardiomyopathy -: spinal fussion - Family History Family History: Reviewed- Non-Contributory - Social History Smoking Status: Never smoker Alcohol use: No CD- Drugs: No Caffeine use: No Place of Residence: Home Review of Systems 10-point ROS is otherwise unremarkable Physical Examination - Vital Signs Temperature: 97.3 F Blood Pressure: 129/76 Pulse: 67 Respirations: 16 Pulse Ox (%): 99 - Physical Exam General: Alert, In no apparent distress HEENT: Atraumatic, PERRLA, Mucous membr. moist/pink, EOMI, Sclerae nonicteric Neck: Supple, 2+ carotid pulse no bruit, No LAD, Without JVD or thyroid abnormality Respiratory: Clear to auscultation bilaterally, Normal air movement Cardiovascular: Regular rate/rhythm, Normal S1 S2 Gastrointestinal: Normal bowel sounds, No tenderness Musculoskeletal: No tenderness Integumentary: No rashes Neurological: Normal gait, Normal speech, Normal strength at 5/5 x4 extr, Normal tone, Normal affect Lymphatics: No axilla or inguinal lymphadenopathy - Studies Laboratory Data (last 24 hrs) 03/30/19 11:56: PT 13.3 H, INR 1.13 03/30/19 11:56: WBC 9.4, Hgb 15.2, Hct 43.7, Plt Count 216 03/30/19 11:56: Sodium 138, Potassium 4.3, BUN 33 H, Creatinine 2.05 H, Glucose 83, Magnesium 2.2, Total Bilirubin 0.8, AST 22, ALT 44, Alkaline Phosphatase 82 , Lipase 141 - Diagnosis (Problem(s)) (1) Dizziness Current Visit: Yes Status: Acute Plan: Now resolved (2) Congestive heart failure (CHF) Current Visit: Yes Status: Acute Plan: Congestive heart failure most likely due to dilated cardiomyopathy -EF of 22% with dilated for chambers -currently on Lasix 80, spironolactone, Coreg, losartan 100 -cardiology was consulted. Recommendations appreciated -patient to be discharged home with Lasix at a lower dose Qualifiers: Heart failure type: biventricular Qualified Code(s): I50.82 - Biventricular heart failure (3) Hyperlipidemia Current Visit: Yes Status: Chronic Qualifiers: Hyperlipidemia type: mixed hyperlipidemia Qualified Code(s): E78.2 - Mixed hyperlipidemia (4) Hypertension Current Visit: Yes Status: Chronic Qualifiers: Hypertension type: essential hypertension Qualified Code(s): I10 - Essential (primary) hypertension (5) Obstructive sleep apnea Current Visit: Yes Status: Acute - Disposition Disposition: ROUTINE DISCHARGE Condition: GOOD Diet: Regular Activity: Ad yanira
--- NOTE | 2019-03-31 16:01 | PN ---
Date of Progress Note: 03/31/2019 Mr. Jean Baptiste is a 38, was admitted 03/30/[address] Manuel for congestive heart failure that is acute on chronic systolic. He has an ejection fraction of 22% with four-chamber dilatation. Chest x -ray is negative. EKG showed left axis deviation. The patient has been seen at [facility] e has a negative heart catheterization as a LifeVest. He was supposed to have a sleep study, which w as not done. His creatinine is 2.05, BNP is 241. Patient is a candidate for defibrillator down the road if his ejection fraction does not improve. He is on a beta-asael, ELMIRA inhibitor, Lasix, Aldac tone, Lipitor, and aspirin. We will continue that regimen and he can go home today. I will see him in the office in the next week or 2. I will set up an outpatient sleep study. I will follow up on h is ejection fraction and if his ejection fraction stays low over the next 2 to 3 months, we will prob ably recommend a defibrillator. MARSHA/TRACE Voice ID: [id number] Report ID: [id number]
--- OUTSIDE RECORDS SUMMARY | 2019-04-05 21:18 | XMS REPORT ---
:1980 Author Organization [facility] Address [address] [place] [address] [place] [id number] Care Team Providers Name Role Phone Unavailable Unavailable Unavailable Problems This patient has no known problems. Allergies, Adverse Reactions, Alerts This patient has no known allergies or adverse reactions. Medications This patient has no known medications.
--- OUTSIDE RECORDS SUMMARY | 2019-04-05 21:18 | XMS REPORT | Summary of Care ---
:1980 Author Organization [facility] Address [address] [place] [address] Care Team Providers Name Role Phone Bossman Ayon Primary Care Provider Reason for Referral (Routine) Status Reason Specialty Diagnoses / Referred By Referred To Procedures Contact Contact New Request Pulmonary Disease Diagnoses SOB (shortness of breath) Hypertension, unspecified type Sleep apnea in adult Jesus Barros Procedures CONSULT PULMONARY MEDICINE [address] [address] (Routine) Status Reason Specialty Diagnoses / Referred By Referred To Procedures Contact Contact New Request Sleep Disorder Diagnoses SOB (shortness of breath) Hypertension, unspecified type Sleep apnea in adult Jesus Barros Diagnostic Procedures CONSULT SLEEP STUDY Preferred Location: [address] [address] MRI/CAT Scan (STAT) Status Reason Specialty Diagnoses / Referred By Referred To Procedures Contact Contact New Request Diagnostic Diagnoses SOB (shortness of breath) Paco Koch, Radiology Procedures CT CHEST PULMONARY ANGIOGRAM [address] [place] [address] [place] [address] MRI/CAT Scan (STAT) Status Reason Specialty Diagnoses / Referred By Referred To Procedures Contact Contact New Request Diagnostic Diagnoses SOB (shortness of breath) Paco Koch, Radiology Procedures CT CHEST PULMONARY ANGIOGRAM [address] [place] [address] [place] [address] Radiology Services (ELI) Status Reason Specialty Diagnoses / Referred By Referred To Procedures Contact Contact New Request Diagnostic Diagnoses SOB (shortness of breath) Jesus Barros Radiology Procedures XR CHEST 1 VW XR CHEST 2 VW III, PA [address] [place] [address] [place] [id number] Reason for Visit Reason Comments Shortness of Breath Palpitations Auth/Cert Status Reason Specialty Diagnoses / Referred By Referred To Procedures Contact Contact [facility] [address] [place] [address] [place] [address] Encounter Details Date Type Department Care Team Description 12/28/2018 Emergency [facility] Jesus Barros III, SOB (shortness of breath) (Primary Dx); Department PA Hypertension, unspecified type; [address] [place] [address] [place] [address] Sleep apnea [place] [address] [place] [address] [phone] Allergies No Known Allergiesdocumented as of this encounter (statuses as of 12/28/2018) Medications Medication Sig Dispensed Refills Start Date End Date Status levofloxacin Take 1 Tab by 7 Tab 0 09/08/2015 Active (LEVAQUIN) 500 mg mouth every 24 tablet (twenty-four) hours. tamsulosin (FLOMAX) Take 1 Cap by 14 Cap 0 09/08/2015 Active 0.4 mg 24 hr capsule mouth at bedtime. ketorolac (TORADOL) 10 Take 1 Tab by 18 Tab 0 09/08/2015 Active mg tablet mouth every 6 (six) hours as needed for Pain (scale 7-10). azithromycin 250 mg Take 2 tablets 6 tablet 0 12/28/2018 12/31/2018 Active tabletIndications: SOB by mouth daily (shortness of breath), for 3 days. Hypertension, unspecified type, Sleep apnea in adult predniSONE 10 mg Take 4 tablets 12 tablet 0 12/28/2018 12/31/2018 Active tabletIndications: SOB by mouth daily (shortness of breath), for 3 days. Hypertension, unspecified type, Sleep apnea in adult loratadine 10 mg Take 1 tablet by 30 tablet 0 12/28/2018 Active tabletIndications: SOB mouth daily. (shortness of breath), Hypertension, unspecified type, Sleep apnea in adult lisinopril-hydrochloro Take 1 tablet by 30 tablet 0 12/28/2018 01/27/2019 Active thiazide 20-12.5 mg mouth daily for per tabletIndications: 30 days. SOB (shortness of breath), Hypertension, unspecified type, Sleep apnea in adult fluticasone propionate Use 2 Sprays in 16 g 0 12/28/2018 Active (FLONASE ALLERGY each nostril RELIEF) 50 daily. mcg/actuation nasal sprayIndications: SOB (shortness of breath), Hypertension, unspecified type, Sleep apnea in adult documented as of this encounter (statuses as of 12/28/2018) Active Problems No known active problemsdocumented as of this encounter (statuses as of 2018) Social History Tobacco Use Types Packs/Day Years Used Date Never Assessed Sex Assigned at Date Recorded Not on file Job Start Date Occupation Industry Not on file Not on file Not on file Travel History Travel Start Travel End No recent travel history available. documented as of this encounter Last Filed Vital Signs Vital Sign Reading Time Taken Comments Blood Pressure 124/57 12/28/2018 6:00 PM CDT Pulse 96 12/28/2018 6:00 PM CDT Temperature 36.8 C (98.2 F) 12/28/2018 2:52 PM CDT Respiratory Rate 25 12/28/2018 6:00 PM CDT Oxygen Saturation 96% 12/28/2018 6:00 PM CDT Inhaled Oxygen Concentration - - Weight 170.1 kg (375 lb) 12/28/2018 2:52 PM CDT Height 188 cm (6' 2") 12/28/2018 2:52 PM CDT Body Mass Index 48.15 12/28/2018 2:52 PM CDT documented in this encounter Discharge Instructions InstructionsMoJesus negron III, [place] - 12/28/2018 @@@@@@@@@@@@@@@@@@@@@@@@@@@@@@@@@@@@@@@@@@@@@@@@@@@@@ [facility] RETURN TO WORK / SCHOOL EXCUSE Mumtaz Jean Baptiste WAS SEEN IN THE ER AND DISCHARGED 12/28/2018 TODAY, 5:50 PM & May return to Work / School / Incarceration on 12/29/18 with No limitations unless indicated below. ___The following limitations apply until pt is seen by Physician and cleared to return to normal activity. ___ Light duty ___ No Sports ___ No work ___ Do not return until fever free for 24 hours. ___ No school Ed [employer] [facility] EMERGENCY DEPRTMENT [address] [place] [address] [place] [address] If you are unprepared to return to work tomorrow due to pain please give this note to your employer and make a follow up appointment with your MD for further evaluation and limitations. ### The patient may have been given Narcotic pain medications during their stay in the ED that may show up on a Drug Screen. The hospital discharge paper work will identify these medications. @@@@@@@@@@@@@@@@@@@@@@@@@@@@@@@@@@@@@@@@@@@@@@@@@@@@@ Thank you for trusting us with your care. The emergency room is the first stop in the medical management of your complaint . Our primary pupose is to identify life threatening emergancies and to rapidly address those issues. We are releasing you today after evaluation for emergency or life threatening problems related to your complaint. At this time we are comfortable that your condition is stable enough to go home, take oral medications and follow up for further care. If you can't afford a doctor OR MEDICATIONS consider [facility], [address] [place] [address]; [phone] Medications [facility] WILL SHOW YOU WHERE YOU CAN GET YOUR MEDICATIONS CHEAPEST. 1. Call your doctor and let them know you were seen for ICD-10-CM ICD-9-CM 1. SOB (shortness of breath) R06.02 786.05 2. Hypertension, unspecified type I10 401.9 3. Sleep apnea in adult G47.30 327.23 2. Schedule a follow up within 3 days of your ER visit. 3. Take your prescriptions to the pharmacy and get them filled today. 4. Take the medications as prescribed and until completed. 5. You have been referred for further care 6. You may need additional tests Your doctors will help you figure out what you need and how to get them done. 7. Please read all paperwork provided to you. Additional instructions See Attached AttachmentsThe following attachments cannot be sent through Care Everywhere.Sleep, Monitoring Your: Sleep Lab Testing (Monegasque)Snoring and Sleep Apnea, What Are (Monegasque)Sleep Clinic, Visiting (Monegasque)Snoring and Sleep Apnea , Surgical Treatment for (Monegasque)Shortness of Breath: Maximizing Your Energy ( Monegasque)Choices, Low-Salt (Monegasque)Exercise for a Healthier Heart (Monegasque) documented in this encounter Plan of Treatment Health Maintenance Due Date Last Done Comments VARICELLA VACCINES (1 of - 13+ 1995 2-dose series) DTaP,Tdap,and Td Vaccines ( - 2001 Tdap) INFLUENZA VACCINE 01/25/2019 PNEUMOCOCCAL 0-64 YEARS COMBINED Aged Out No longer eligible based on SERIES patient's age to complete this topic documented as of this encounter Procedures Procedure Name Priority Date/Time Associated Comments Diagnosis FREE T4 STAT 12/28/2018 4:51 SOB (shortness of Results for this PM CDT breath) procedure are in the results section. ADC / [facility] - DRUG STAT 12/28/2018 4:37 SOB (shortness of Results for this SCREEN TRIAGE PM CDT breath) procedure are in the results section. URINALYSIS STAT 12/28/2018 4:37 SOB (shortness of Results for this PM CDT breath) procedure are in the results section. CT CHEST PULMONARY STAT 12/28/2018 4:35 SOB (shortness of Results for this ANGIOGRAM PM CDT breath) procedure are in the results section. ACUTE CARE ARTERIAL STAT 12/28/2018 3:34 SOB (shortness of Results for this BLOOD GAS PM CDT breath) procedure are in the results section. CBC WITH DIFFERENTIAL STAT 12/28/2018 3:25 SOB (shortness of Results for this PM CDT breath) procedure are in the results section. N-TERMINAL PRO-BNP STAT 12/28/2018 3:25 SOB (shortness of Results for this PM CDT breath) procedure are in the results section. D-DIMER STAT 12/28/2018 3:25 SOB (shortness of Results for this PM CDT breath) procedure are in the results section. CBC WITH DIFF Routine 12/28/2018 3:25 SOB (shortness of Results for this PM CDT breath) procedure are in the results section. COMP. METABOLIC PANEL STAT 12/28/2018 3:25 SOB (shortness of Results for this ([address]24[address]) PM CDT breath) procedure are in the results section. THYROID STIMULATING STAT Add-On 12/28/2018 3:25 SOB (shortness of Results for this HORMONE PM CDT breath) procedure are in the results section. TROPONIN I STAT 12/28/2018 3:25 SOB (shortness of Results for this PM CDT breath) procedure are in the results section. XR CHEST 1 VW ELI 12/28/2018 3:15 SOB (shortness of Results for this PM CDT breath) procedure are in the results section. EKG-12 LEAD Routine 12/28/2018 3:03 PM CDT NOTICE OF PRIVACY Routine 12/28/2018 2:47 PRACTICES PM CDT CONSENT/REFUSAL FOR Routine 12/28/2018 2:47 DIAGNOSIS AND PM CDT TREATMENT documented in this encounter Results FREE T4 (12/28/2018 4:51 PM CDT) FREE T4 1.31 0.78 - 2.20 ng/dL [facility] Specimen Blood - VENOUS Performing Organization Address City/State/Zipcode Phone Number [facility] CLIA: [id number], [address] [place] [address] ADC / [facility] - DRUG SCREEN TRIAGE (12/28/2018 4:37 PM CDT) BENZO U Negative Negative [facility] EMERSON U Negative Negative [facility] AMPHET Negative Negative [facility] THC Negative Negative [facility] METHADONE Negative Negative [facility] Meth U Negative Negative [facility] OPIATES Negative Negative [facility] Cocaine Metabolite Negative Negative [facility] PROPOXY Negative Negative [facility] Tric U Negative Negative [facility] PCP Negative Negative [facility] OXYCOD Negative Negative [facility] Specimen Urine - URINE, CLEAN CATCH Narrative Performed At Urine Drug Cutoff Ranges [facility] Benzodiazepines: 150 ng/mL Barbiturates: 200 ng/mL Amphetamine: 500 ng/mL Cannabinoids: 50ng/mL Methadone: 200 ng/mL Methamphetamine: 500 ng/mL Opiates: 100 ng/mL or 2000 ng/mL Cocaine: 150 ng/mL Propoxyphene:300 ng/mL Tricyclics:300 ng/mL Oxycodone: 100 ng/mL PCP: 25ng/mL The results are to be used only for medical (i.e., treatment) purposes. Unconfirmed screening results must not be used for non-medical purposes (e.g., employment testing, legal testing). Performing Organization Address [facility] Phone Number [facility] CLIA: [id number], [address] [place] [address] URINALYSIS (12/28/2018 4:37 PM CDT) APPEARANCE Clear Clear [facility] COLOR Yellow Yellow [facility] PH 6.0 4.8 - 8.0 [facility] SP GRAVITY 1.010 1.003 - 1.030 [facility] GLU U QUAL Negative Negative [facility] BLOOD Negative Negative [facility] KETONES Negative Negative [facility] PROTEIN Negative Negative [facility] UROBILIN 0.2 mg/dL 0-1.0 mg/dL [facility] BILIRUBIN Negative Negative [facility] NITRITE Negative Negative [facility] LEUK AMINATA Negative Negative [facility] RBC/HPF 0 0 - 3 HPF [facility] WBC/HPF 0 0 - 5 HPF [facility] BACTERIA Negative Negative [facility] SQ EPITH 2 HPF [facility] Specimen Urine - URINE, CLEAN CATCH Performing Organization Address [facility] Phone Number [facility] CLIA: [id number], [address] [place] [address] CHEST PULMONARY ANGIOGRAM (12/28/2018 4:35 PM CDT) Specimen Narrative Performed At HISTORY: Shortness of breath, rule out P.E. PACS/VR/DOSE TECHNIQUE: Contrast-enhanced 64-mutidetector CT scan of the chest was completed with intravenous injection ofOmnipaque-350 non ionic contrast medium. Subsequently numerous sagittal, coronal and MIP reformations were generated. FINDINGS: Contrast opacification of pulmonary arterial circulation is suboptimal due to poor timing of contrast bolus and acquisition of images. No large acute pulmonary thromboembolism in central pulmonary arteries visualized. Small peripheral thromboemboli cannot be ruled out in this examination. Trachea and central bronchial airways appear normal. Mild bibasilar congestion/pulmonary edema noted. No significant pleural effusion. No pericardial effusion. No enlarged hilar or mediastinal lymph nodes. No aortic aneurysm or aortic dissection. Upper portions of the abdomen included in this examination appear unremarkable. CONCLUSIONS: 1. Suboptimal study for evaluation of acute pulmonary thromboembolism. No large pulmonary emboli visualized in the central pulmonary circulation. 2. Mild bibasilar pulmonary congestion/edema. Procedure Note [facility], Radiant Results Inft User - 12/28/2018 5:18 PM CDT HISTORY: Shortness of breath, rule out P.E. TECHNIQUE: Contrast-enhanced 64-mutidetector CT scan of the chest was completed with intravenous injection of Omnipaque-350 non ionic contrast medium. Subsequently numerous sagittal, coronal and MIP reformations were generated. FINDINGS: Contrast opacification of pulmonary arterial circulation is suboptimal due to poor timing of contrast bolus and acquisition of images. No large acute pulmonary thromboembolism in central pulmonary arteries visualized. Small peripheral thromboemboli cannot be ruled out in this examination. Trachea and central bronchial airways appear normal. Mild bibasilar congestion/pulmonary edema noted. No significant pleural effusion. No pericardial effusion. No enlarged hilar or mediastinal lymph nodes. No aortic aneurysm or aortic dissection. Upper portions of the abdomen included in this examination appear unremarkable. CONCLUSIONS: 1. Suboptimal study for evaluation of acute pulmonary thromboembolism. No large pulmonary emboli visualized in the central pulmonary circulation. 2. Mild bibasilar pulmonary congestion/edema. Performing Organization Address [facility]/Zipcode Phone Number PACS/VR/DOSE Acute Care Arterial Blood Gas. (12/28/2018 3:34 PM CDT) PH 7.45 7.35 - 7.45 [facility] PCO2 33 (L) 35 - 45 mmHg [facility] PO2 87 80 - 100 mmHg [facility] HCO3 22 22 - 26 mEq/L [facility] BE -1.0 -3.0 - 3.0 mEq/L [facility] Specimen Blood - ARTERIAL Performing Organization Address City/[facility]/Zipcode Phone Number [facility] CLIA: [id number], [address] [place] [address] THYROID STIMULATING HORMONE (12/28/2018 3:25 PM CDT) TSH 2.56 0.45 - 4.70 mIU/L [facility] Specimen Blood - VENOUS Performing Organization Address City/State/Zipcode Phone Number [facility] CLIA: [id number], [address] [place] [address] CBC WITH DIFFERENTIAL (12/28/2018 3:25 PM CDT) WBC 7.98 4.20 - 10.70 [facility] 10*3/L [facility] RBC 5.14 4.26 - 5.52 [facility] 10*6/L [facility] HGB 15.2 12.2 - 16.4 g/dL [facility] HCT 44.9 38.4 - 49.3 % [facility] MCV 87.4 81.7 - 95.6 fL [facility] MCH 29.6 26.1 - 32.7 pg [facility] MCHC 33.9 31.2 - 35.0 g/dL [facility] RDW-SD 39.9 38.5 - 51.6 fL [facility] RDW-CV 12.6 12.1 - 15.4 % [facility] PLT 208 150 - 328 [facility] 10*3/L [facility] MPV 11.4 9.8 - 13.0 fL [facility] NRBC/100 WBC 0.0 0.0 - 10.0 /100 [facility] WBCs [facility] NRBC x10^3 <0.01 10*3/L [facility] GRAN MAT (NEUT) % 52.5 % [facility] IMM GRAN % 0.10 % [facility] LYMPH % 35.7 % [facility] MONO % 8.4 % [facility] EOS % 2.8 % [facility] BASO % 0.5 % [facility] GRAN MAT x10^3(ANC) 4.19 1.99 - 6.95 [facility] 10*3/uL [facility] IMM GRAN x10^3 <0.03 0.00 - 0.06 [facility] 10*3/uL HOSPITAL LABORATORY LYMPH x10^3 2.85 1.09 - 3.23 [facility] 10*3/uL HOSPITAL LABORATORY MONO x10^3 0.67 0.36 - 1.02 [facility] 10*3/uL HOSPITAL LABORATORY EOS x10^3 0.22 0.06 - 0.53 [facility] 10*3/uL HOSPITAL LABORATORY BASO x10^3 0.04 0.01 - 0.09 [facility] 10*3/uL HOSPITAL LABORATORY Specimen Blood - VENOUS Performing Organization Address City/State/[facility] Phone Number [facility] CLIA: [id number], [address] [place] [address] N-TERMINAL PRO-BNP (12/28/2018 3:25 PM CDT) NT-proBNP 534 (H) <=125 pg/mL [facility] Specimen Blood - VENOUS Narrative Performed At Biotin has been reported to cause a negative [facility] bias, interpret results relative to patient's use of biotin. Performing Organization Address City/State/[facility] Phone Number [facility] CLIA: [id number], [address] [place] [address] TROPONIN I (12/28/2018 3:25 PM CDT) TROPONIN I 0.012 <=0.034 ng/mL [facility] Specimen Blood - VENOUS Narrative Performed At Equal or Less than 0.034 ng/ml---Normal [facility] Note: Cardiac troponin begins to rise 3-4 hours after the onset of ischemia. Repeat in 4-6 hours if the sample was drawn within 3-4 hours of the onset of the symptom and found normal. Between 0.035 and 0.120 ng/mL--- Borderline. Questionable myocardial injury or necrosis Note: Serial measurement may be necessary to confirm or exclude the diagnosis of myocardial injury or necrosis; Clinical correlation (symptoms, EKGs, imaging studies, and others) required; Repeat in 4-6 hours if clinically indicated. Equal or Higher than 0.121 ng/mL---Abnormal. Myocardial Injury or Necrosis Likely Biotin has been reported to cause a negative bias, interpret results relative to patient's use of biotin. Performing Organization Address City/State/[facility] Phone Number [facility] CLIA: [id number], [address] [place] [address] D-DIMER (12/28/2018 3:25 PM CDT) D-DIMER 0.57 (H) <0.41 g/mL (FEU) [facility] Specimen Blood - VENOUS Narrative Performed At This test may be used in conjunction with a [facility] clinical pretest probability (PTP) assessment model to exclude pulmonary embolism (PE) and as an aid in the diagnosis of deep venous thrombosis (DVT) in outpatients suspected of PE or DVT. A D-Dimer value less than 0.50 g/ml (FEU) has a negative predicative value of 98 to 100% (95% CI) for the exclusion of pulmonary embolism (PE) and 95 to 100% (95% CI) as an aid in the diagnosis of deep vein thrombosis (DVT) when there is low or moderate pretest probability of PE or DVT. D-Dimer values are expressed in initial fibrinogen equivalent units (FEU). Performing Organization Address [facility] Phone Number [facility] CLIA: [id number], [address] [place] [address] COMP. METABOLIC PANEL (00356) (12/28/2018 3:25 PM CDT) NA 145 135 - 145 [facility] mmol/L [facility] K 3.7 3.5 - 5.0 [facility] mmol/L [facility] CL 109 (H) 98 - 108 mmol/L [facility] CO2 TOTAL 24 23 - 31 mmol/L [facility] AGAP 12 2 - 16 [facility] BUN 11 7 - 23 mg/dL [facility] GLUCOSE 79 70 - 110 mg/dL [facility] CREATININE 0.66 0.60 - 1.25 [facility] mg/dL [facility] TOTAL BILI 0.7 0.1 - 1.1 mg/dL [facility] CALCIUM 8.4 (L) 8.6 - 10.6 [facility] mg/dL [facility] T PROTEIN 7.4 6.3 - 8.2 g/dL [facility] ALBUMIN 4.2 3.5 - 5.0 g/dL [facility] ALK PHOS 76 34 - 122 U/L [facility] ALT(SGPT) 41 9 - 51 U/L [facility] AST(SGOT) 25 13 - 40 U/L [facility] eGFR Calculation 136.6 mL/min/1.73m2 [facility] [place] eGFR Calculation 165.5 mL/min/1.73m2 [facility] () [facility] Specimen Blood - VENOUS Narrative Performed At Association of Glomerular Filtration Rate (GFR) [facility] and Staging of Kidney Disease* + + +- + | GFR (mL/min/1.73 m2)| With Kidney Damage|Without Kidney Damage + + +- + |>90| Stage one| Normal + + +- + |60-89|S tage two| Decreased GFR + + +- + |30-59|S tage three| Stage three + + +- + |15-29|S tage four | Stage four + + +- + |<15 (or dialysis)|Stage five | Stage five + + +- + *Each stage assumes the associated GFR level has been in effect for at least three months.Stages 1 to 5, with or without kidney disease, indicate chronic kidney disease. Notes: Determination of stages one and two (with eGFR >59mL/min/1.73 m2) requires estimation of kidney damage for at least three months as defined by structural or functional abnormalities of the kidney, manifested by either: Pathological abnormalities or Markers of kidney damage (including abnormalities in the composition of the blood or urine or abnormalities in imaging tests). Performing Organization Address City/State/Zipcode Phone Number [facility] CLIA: [id number], [address] [place] [address] XR CHEST 1 VW (12/28/2018 3:15 PM CDT) Specimen Impressions Performed At PACS/VR/DOSE Cardiomegaly with [id number]-bjjuekxh pulmonary edema. Superimposed infection cannot be excluded. Mike Dennis MD., have reviewed this study and agree with the above report. Narrative Performed At EXAM: XR CHEST 1 VW PACS/VR/DOSE HISTORY: 38 years-old Male presenting with Shortness of breath COMPARISON: CT abdomen pelvis 09/08/2015 FINDINGS: Mild to moderate pulmonary edema is noted. No focal consolidation is identified. No pleural effusion or pneumothorax. The cardiomediastinal silhouette is enlarged. No acute bony abnormality. Changes of ACDF are noted. Procedure Note [facility], Radiant Results Inft User - 12/28/2018 4:09 PM CDT EXAM: XR CHEST 1 VW HISTORY: 38 years-old Male presenting with Shortness of breath COMPARISON: CT abdomen pelvis 09/08/2015 FINDINGS: Mild to moderate pulmonary edema is noted. No focal consolidation is identified. No pleural effusion or pneumothorax. The cardiomediastinal silhouette is enlarged. No acute bony abnormality. Changes of ACDF are noted. IMPRESSION Cardiomegaly with [id number]-hjoklnnp pulmonary edema. Superimposed infection cannot be excluded. ICesar MD., have reviewed this study and agree with the above report. Performing Organization Address City/State/Zipcode Phone Number PACS/VR/DOSE documented in this encounter Visit Diagnoses Diagnosis SOB (shortness of breath) - Primary Shortness of breath Hypertension, unspecified type Sleep apnea in adult documented in this encounter Administered Medications Medication Order MAR Action Action Date Dose Rate Site hydralAZINE (APRESOLINE) injection Given 12/28/2018 3:26 PM CDT 10 mg 10 mg 10 mg, Intravenous, Q6H, First dose on 12/28/18 at 1800, Until Discontinued, Routine, Indication: Hypertensive Emergency Medication Order MAR Action Action Date Dose Rate Site furosemide (LASIX) injection 20 mg Given 12/28/2018 3:31 PM CDT 20 mg 20 mg, IV Push, ONCE, 1 dose, 12/28/18 at 1615, ELI iohexol (OMNIPAQUE 350 BULK-100 mL) Given 12/28/2018 4:24 PM CDT 107 mL injection 107 mL 107 mL, Intravenous, ONCE, 1 dose, 12/28/18 at 1645, Routine ipratropium-albuterol (DUONEB) 0.5 mg-3 mg(2.5 Given 12/28/2018 3:21 PM CDT 3 mL mg base)/3 mL nebulizer solution 3 mL 3 mL, Inhalation, ONCE NOW, 1 dose, 12/28/18 at 1615, Routine LORazepam (ATIVAN) injection 1 mg Given 12/28/2018 3:59 PM CDT 1 mg See Comment 1 mg, Intramuscular, ONCE, 1 dose, 12/28/18 at 1700, Routine methylprednisolone sod succ (SOLU-MEDROL) Given 12/28/2018 3:26 PM CDT 125 mg injection 125 mg 125 mg, Slow IV Push, ONCE NOW, 1 dose, 12/28/18 at 1615, STAT NaCl 0.9% (NS) bolus infusion New Bag 12/28/2018 3:26 PM CDT 1,000 mL 999 mL/hr 1,000 mL at 999 mL/hr, 1,000 mL, IV Infusion, ONCE, 1 dose, 12/28/18 at 1615, STAT ondansetron (ZOFRAN (PF)) injection 4 mg Given 12/28/2018 3:26 PM CDT 4 mg 4 mg, Slow IV Push, ONCE, 1 dose, 12/28/18 at 1615, ELI documented in this encounter Insurance Payer Benefit Plan Subscriber ID Effective Dates Phone Address Type / Group [facility] [id number] 2018-Dara [phone] [address] PPO/ POS [facility] [id number] [place] [address] documented as of this encounter
== END 2019-03-31 11:20 | disposition home or self-care (01) ==
LOC: ER 11:06 → ERHOLD 13:37 → 4TH 15:11
PROVIDERS: ADMIT Family Medicine; ATTEND Family Medicine
DX: I50.41 Acute combined systolic (congestive) and diastolic (congestive) heart failure (principal); G47.33 Obstructive sleep apnea (adult) (pediatric); E78.5 Hyperlipidemia, unspecified; I10 Essential (primary) hypertension; Z23 Encounter for immunization
CPT/HCPCS: 93005; 93306; 87088; 85025 ×2; 80048; 36415; 83735; 84100; 85610; 80076; 80307 ×8; 81003; 84484; 83690; 80053; 83880; 71045; 90471; 99284; Q2035; J7030; G0378 ×3; 87086